=== PATIENT | male | born 1945 | race Caucasian/White ===

== ENCOUNTER 2022-08-26 11:55 | Emergency (ER) | payer OTHER, MEDICARE, SELFPAY ==
--- NOTE | ~2022-08-26 | CT_ITS ---
CT head without contrast Indication: Status post fall Technique: Serial scans were obtained through the brain without the administration of contrast. Dose reduction technique was used on this scan by utilizing automated exposure control and iterative recon struction technique. The dose-length product (DLP) was 605.33 mGy-cm. Findings: There is no evidence of intracranial hemorrhage, mass lesion, or acute infarct. Chronic lef t cerebellar infarct noted. The ventricles and subarachnoid spaces are dilated, consistent with moder ate atrophy. There is no evidence of edema, mass effect or midline shift. The visualized paranasa l sinuses and mastoid air cells are clear. Impression: No intracranial hemorrhage, mass, or acute infarct. 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 Reviewed, dictated and finalized at location . [employer]ATOR Impression: No intracranial hemorrhage, mass, or acute infarct. 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
[2022-08-26 11:55] VITALS: BP 110/65; PULSE 69; RESP 18; TEMP 36.1; O2SAT 93
[2022-08-26 11:56] VITALS: BP 110/65; RESP 18; O2SAT 92
--- NOTE | 2022-08-26 12:12 | ED.FALL ---
HPI - Fall General Chief Complaint: Fall Stated Complaint: AMBULANCE -fall Time Seen by Provider: 08/26/22 12:12 Source: patient, EMS and RN notes reviewed Mode of arrival: EMS Limitations: no limitations History of Present Illness HPI Narrative: Patient was down town when he was trying to get his dog into the car he had bent over and when he tried to stand up he caught his foot on the curb and then fell straight backwards onto the left side of his back and then struck his head on the left side of his occiput. There is no loss of consciousness. He he did have some bleeding but no obvious laceration. He had a small amount of bleeding from his right nares well but states he did not get hit in the nose. Says he currently feels fine. He has all of his medical care at the [facility] in [place]. complaint: fall Onset (ago): minute(s) (30) Fall from: standing Fall witnessed: yes, by bystander Place fall occurred: street Loss of consciousness: none Prolonged down time: no Symptoms prior to fall: none Context: tripped/slipped Location of injury: head Severity: mild Quality: dull and aching Associated symptoms (after fall): denies Related Data Home Medications Medication Instructions Recorded Confirmed Unable to Obtain Home Medications 08/26/22 08/26/22 Allergies Allergy/AdvReac Type Severity Reaction Status Date / Time No Known Allergies Allergy Verified 08/26/22 12:38 Review of Systems Review of Systems: All systems reviewed & are unremarkable except as noted in HPI and below PMFSH Past Medical History Medical History (Updated 08/26/22 @ 13:07 by Andrew Pichardo MD) History of renal cell cancer Hyperlipidemia Hypertension Peripheral neuropathy Type 2 diabetes mellitus Surgical History Surgical History (Updated 08/26/22 @ 13:05 by Andrew Pichardo MD) History of ankle surgery left History of appendectomy History of kidney surgery left cancer removal History of knee replacement left Hx of cholecystectomy Social History Social History (Updated 08/26/22 @ 13:05 by Andrew Pichardo MD) Smoking status: Former smoker Alcohol intake: former Alcohol use details: quit 1975 Substance use: never Exam Const: General: healthy appearing, no acute distress and alert Nutritional Appearance: well nourished Orientation/consciousness: patient oriented x3 Limitations: no limitations HENMT: Head: abrasion left occipital Ears: TM's normal bilaterally Face/Nose/Sinus: Normal external nose present and Epistaxis present on the right anterior source (mild) and dried blood present; no active bleeding Face and sinus: normal facial exam Teeth and gingiva: dentition normal Eyes: Conjunctivae: conjunctivae normal Pupils: Equal, round and reactive pupils present EOM: EOMs intact bilaterally Neck: Neck: normal visual inspection Resp: Effort & Inspection: normal respiratory effort Auscultation: clear to auscultation bilaterally Cardio: Rate: regular rate Rhythm: regular rhythm GI: GI Palp: Yes Soft to palpation and No Tenderness to palpation present (GI) Auscultation: normal bowel sounds Back/Spine/Pelvis: Cervical Spine: cervical ROM normal Thoracic/Lumbar Spine: thoraco-lumbar ROM normal Skin: General skin exam: normal color Rashes: no rashes Other: Two linear longitudinal friction lyons of the skin on the left posterior back in the thoracic region Neuro: General: patient oriented x3, moves all extremities, no focal motor deficits and CN's II-XI intact bilaterally Speech: normal speech Gait exam (Neuro): Normal gait present Extrem: General: normal to inspection and no clubbing, cyanosis or edema Psych: Mental Status: mental status grossly normal Affect: normal affect Course Vital Signs Vital signs: Vital Signs Temperature 36.1 C L 08/26/22 11:55 Pulse Rate 69 08/26/22 11:55 Respiratory Rate 18 08/26/22 11:55 Blood Pressure 110/65 08/26/22 11:55 Pulse
[2022-08-26 13:08] VITALS: BP 140/81; PULSE 76; RESP 16; O2SAT 98
--- NOTE | 2022-08-26 13:31 | PC.NURSE ---
HEMATOMA AND ABRASION WERE NOTED TO BACK OF HEAD. WOUND CLEANED. FAMILY TO TRANSPORT PT HOME. PT AMBULATORY TO WITH CANE.
== END 2022-08-26 13:15 | disposition home or self-care (01) ==
PROVIDERS: Emergency Provider Emergency Medicine
DX: S00.03XA Contusion of scalp, initial encounter (principal); E78.5 Hyperlipidemia, unspecified; I10 Essential (primary) hypertension; Z87.891 Personal history of nicotine dependence; Z85.53 Personal history of malignant neoplasm of renal pelvis; W18.39XA Other fall on same level, initial encounter
CPT/HCPCS: 70450; 99284